=== PATIENT | male | born 1960 | race Caucasian/White ===

== ENCOUNTER → 2016-08-25 | Outpatient (CLI) | payer BC | LOC: GMAB 10:52 | PROVIDERS: ATTEND Family Medicine | DX: Z00.01 Encounter for general adult medical examination with abnormal findings (principal) ==

== ENCOUNTER → 2018-08-24 | Outpatient (CLI) | payer BC | LOC: GMAE 10:19 | PROVIDERS: ATTEND Family Medicine | DX: Z00.00 Encounter for general adult medical examination without abnormal findings (principal) ==

== ENCOUNTER → 2019-08-25 | Outpatient (CLI) | payer BC | LOC: GMAE 11:09 | PROVIDERS: ATTEND Family Medicine | DX: Z00.00 Encounter for general adult medical examination without abnormal findings (principal) ==

== ENCOUNTER → 2020-03-26 | Outpatient (CLI) | payer BC | END | disposition home or self-care (01) | LOC: GMAE 16:55 | PROVIDERS: ATTEND Family Medicine | DX: M10.00 Idiopathic gout, unspecified site (principal) ==

== ENCOUNTER 2020-06-21 09:53 | Emergency (ER) | payer BC, OTHER ==
--- NOTE | 2020-06-21 10:44 | RAD ---
Study: Single Frontal Radiograph of the Chest. Indication:cough, chest tight Comparison: None Impression: Mild cardiomegaly without failure. Bibasilar atelectasis versus developing consolidation. Follow-up to resolution recommended. No pleural effusion or pneumothorax. No acute osseous abnormality. Electronically signed by: Marcus Moser MD 06/21/2020 10:43 AM [facility]
[2020-06-21] MEDS ORDERED: AZITHROMYCIN 250 MG TAB PO ONE (11:37)
[2020-06-21] MEDS ORDERED: predniSONE 20 MG TAB PO ONE (11:37)
--- NOTE | 2020-06-21 11:40 | ED.PDOC ---
History of Present Illness - General Chief Complaint: Respiratory Problem Time Seen by Provider: 06/21/20 10:06 Source: patient Exam Limitations: no limitations - History of Present Illness Initial Comments: The patient is a 60-year-old male presented emergency room secondary to some body aches, mild headache, mild runny nose, cough and low-grade fever for the last 24 to 48 hours. No real shortness of breath just some mild chest tightness. Mild rattling cough. No hypoxia. No syncope or near syncope. Timing/Duration: 24 hours Severity: mild Improving Factors: nothing Worsening Factors: nothing Associated Symptoms: cough, headaches, malaise Allergies/Adverse Reactions: Allergies NO KNOWN ALLERGY Allergy (Verified 06/21/20 10:57) Home Medications: Ambulatory Orders Azithromycin 500 mg PO DAILY #5 tab 06/21/20 Lisinopril PO DAILY 06/21/20 predniSONE [Prednisone] 20 mg PO DAILY #5 tab 06/21/20 Review of Systems - Review of Systems Constitutional: States: fever, malaise EENTM: States: nose congestion, throat pain Respiratory: States: cough Cardiology: States: no symptoms reported Gastrointestinal/Abdominal: States: no symptoms reported Genitourinary: States: no symptoms reported Musculoskeletal: States: no symptoms reported Skin: States: no symptoms reported Neurological: States: no symptoms reported Endocrine: States: no symptoms reported All other Systems: No Change from Baseline Physical Exam - Physical Exam General Appearance: Alert, Comfortable, No apparent distress Eye Exam: bilateral normal Ears, Nose, Throat: hearing grossly normal, nasal congestion, pharyngeal erythema Neck: full range of motion, supple Respiratory: normal breath sounds - Very mild fine scattered rhonchi., no respiratory distress, no accessory muscle use, other Cardiovascular/Chest: normal peripheral pulses, regular rate, rhythm, no edema Peripheral Pulses: radial,right: 2+, radial,left: 2+ Gastrointestinal/Abdominal: non tender, soft Rectal Exam: deferred Back Exam: no CVA tenderness, no vertebral tenderness Extremity: non-tender, normal inspection, no pedal edema, normal capillary refill 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 He will be placed on azithromycin and prednisone for 5 days. No evidence of hypoxia or respiratory distress. He needs to keep himself well-hydrated. Motrin or Tylenol can be taken for discomfort or fever control. He obviously needs to isolate. ER warnings are given. Contact his primary care doctor in 2 to 3 days by phone for a repeat evaluation. rashi valentin [id number] - Results/Orders Results/Orders: Laboratory Tests 06/21/20 06/21/20 06/21/20 10:30 10:30 10:30 WBC 5.5 RBC 5.07 Hgb 15.8 Hct 45.5 MCV 89.9 MCH 31.3 H MCHC 34.8 RDW 12.5 Plt Count 119 L MPV 8.4 Absolute Neuts (auto) 3.50 Absolute Lymphs (auto) 0.90 L Absolute Monos (auto) 1.00 H Absolute Eos (auto) 0.00 Absolute Basos (auto) 0.10 Neutrophils % 63.7 Lymphocytes % 17.1 L Monocytes % 17.4 H Eosinophils % 0.7 L Basophils % 1.1 PT 10.0 INR 1.01 PTT (SP) 34.4 H Sodium 137 Potassium 3.9 Chloride 103 Carbon Dioxide 25 Anion Gap 12.9 BUN 15 Creatinine 0.88 BUN/Creatinine Ratio 17.0 Random Glucose 103 Serum Osmolality 274.9 L Calcium 8.2 L Total Bilirubin 0.8 AST 28 ALT 30 Alkaline Phosphatase 56 Creatine Kinase 98 CK-MB (CK-2) 1.4 CK-MB (CK-2) % Not Reportable Troponin I < 0.02 B-Natriuretic Peptide < 15.0 Serum Total Protein 7.7 Albumin 4.2 Globulin 3.5 Albumin/Globulin Ratio 1.2 Positive coronavirus test from the clinic today. EKG shows normal sinus rhythm at 88 bpm. Normal axis. Normal R wave progression. No ST segment changes or T wave changes indicative of acute ischemia. Chest x-ray shows mild cardiomegaly. No overt infiltrate. Departure - Departure Clinical Impression: COVID-19 virus infection Disposition: Discharge to Home or Self Care Condition: Fair Departure Forms: ED Discharge - Pt. Copy, Patient Portal Self Enrollment Diet: regular diet Activity: increase activity as tolerated Referrals: KAYLA BUNN MD [Primary Care Provider] - 1-2 Weeks Prescriptions: Azithromycin 500 mg PO DAILY #5 tab predniSONE [Prednisone] 20 mg PO DAILY #5 tab Home Medications: Ambulatory Orders Azithromycin 500 mg PO DAILY #5 tab 06/21/20 Lisinopril PO DAILY 06/21/20 predniSONE [Prednisone] 20 mg PO DAILY #5 tab 06/21/20 Additional Instructions: The patient is a 60-year-old male presented to emergency room with an acute coronavirus infection. He will be placed on azithromycin and prednisone for 5 days. No evidence of hypoxia or respiratory distress. He needs to keep himself well-hydrated. Motrin or Tylenol can be taken for discomfort or fever control. He obviously needs to isolate. ER warnings are given. Contact his primary care doctor in 2 to 3 days by phone for a repeat evaluation.
[2020-06-21 11:57] VITALS: BP 144/88; TEMP 99.1; O2SAT 98
== END 2020-06-21 12:01 | disposition home or self-care (01) ==
LOC: ER 09:53
DX: U07.1 COVID-19 (principal); R07.89 Other chest pain; I51.7 Cardiomegaly
CPT/HCPCS: 36415; 71045; 80053; 82550; 82553; 83880; 84484; 85025; 85610; 85730; 87040; 93005; J7512; Q0144

== ENCOUNTER → 2020-06-26 | Outpatient (CLI) | payer OTHER ==
--- NOTE | 2020-06-26 16:21 | RAD ---
EXAM DESCRIPTION: Chest,2 Views CLINICAL HISTORY: COVID COMPARISON: June 21, 2020 TECHNIQUE: X-ray 2V chest PA/lateral FINDINGS: Very subtle hazy peripheral groundglass opacities mostly in the lung bases. No dense consolidation. No effusion. Heart size normal. IMPRESSION: 1. Subtle changes compatible with Covid 19 pneumonia Electronically signed by: Eduardo Hill MD 06/26/2020 4:19 PM [facility]
== END ==
LOC: LAB.O 11:46
PROVIDERS: ATTEND Family Medicine
DX: B34.2 Coronavirus infection, unspecified (principal); R09.02 Hypoxemia; R71.8 Other abnormality of red blood cells

== ENCOUNTER → 2020-08-14 | Outpatient (CLI) | payer OTHER | LOC: GMAE 12:05 | PROVIDERS: ATTEND Family Medicine | DX: Z00.00 Encounter for general adult medical examination without abnormal findings (principal) ==